=== PATIENT | female | born 1995 | race Two or more races ===

== ENCOUNTER 2024-04-07 13:23 | Emergency (ER) | payer OTHER ==
[~2024-04-07] VITALS: Ht 160 cm; Wt 81.6 kg
[2024-04-07 15:52] LABS: PH,URINE 5.5 (5.0-8.0); URINE APPEARANCE Cloudy; URINE BILIRRUBIN Negative (NEGATIVE); URINE BLOOD Negative; URINE COLOR Yellow; URINE GLUCOSE Negative (NEGATIVE); URINE KETONE 15 (NEGATIVE); URINE LEUKOCYTE Small; URINE NITRATE Negative; URINE PROTEIN Negative (NEGATIVE)
[2024-04-07 15:53] LABS: URINE BACTERIA 2047.4 uL (0.0-1933); URINE EPITHELIAL CELLS 42.9 uL (0.0-38.8); URINE RBC 85.5 uL (0.0-20.8); URINE WBC 60.1 uL (0.0-23.2)
[2024-04-07 15:53] LABS: HEMATOCRIT 36.6 % (36.0-45.00); HEMOGLOBIN 12.1 g/dL (12.0-15.00); MEAN CELL VOLUME 57.7 fL (80.00-100.00); MEAN CORPUSCULAR HGB CONC 32.9 g/dl (32.0-36.0); PLATELET COUNT 246 K/uL (150-450); RED BLOOD COUNT 6.35 M/uL (4.00-6.00)
[2024-04-07 16:21] LABS: CALCIUM 9.5 mg/dL (8.5-10.1); CREATININE SERUM 0.7 mg/dL (0.55-1.02); GFR 98.25; POTASSIUM 3.98 mEq/L (3.5-5.1)
== END 2024-04-07 18:15 | disposition home or self-care (01) ==
LOC: ER 13:25
PROVIDERS: General Practice
DX: O20.8 Other hemorrhage in early pregnancy (principal); O23.31 Infections of other parts of urinary tract in pregnancy, first trimester; N39.0 Urinary tract infection, site not specified; Z3A.08 8 weeks gestation of pregnancy

== ENCOUNTER 2024-04-15 06:18 | Day surgery (SDC) | payer OTHER ==
[~2024-04-15] VITALS: Ht 160 cm; Wt 81.6 kg
--- NOTE | 2024-04-15 06:04 | NUR ---
PACIENTE ALERTA Y ORIENTADA X3 EMBARAZADA DE 9 SEMANAS LA CUAL SE ATIENDE CON DR. BARON KAUFMAN. PACIENTE REFIERE SANGRADO DESDE VIERNES, LA MISMA REFIERE COAGULOS.
[2024-04-15] MEDS ORDERED: KETOROLAC TROMETHAMINE 30 MG VIAL IV STA (06:48)
[2024-04-15] MEDS ORDERED: RINGERS SOLUTION,LACTATED 1,000 ML IV ONE (07:00)
--- NOTE | 2024-04-15 07:25 | NUR ---
SE EDUCA A PTE SOBRE TX A RECIBIR EN EL AREA LA MISMA REFIERE ENTENDER. SE REALIZAN MUESTRAS BAJO MEDIDAS ASEPTICAS Y SE ENVIAN DE FORMA INMEDIATA A LAB. SE CANALIZA PACIENTE EN BRAZO MARC #20 DONDE SE COLOCA H.L Y SE DWAIN EN IVFLUIDS IRMA ORDEN MEDICA. SE ADMINISTRA MEDICACION A LO CUAL PTE NO PRESENTA REACCION ADVERSA. SE DWAIN LA MISMA EN ESPERA DE SONOGRAFIA CON ENVACE DE ORINA EN MANO PARA CUANDO TERMINE ESTUDIO. PACIENTE COMPLETAMENTE EDUCADA SOBRE EL PROCESO A SEGUIR EN EL AREA.
[2024-04-15 07:34] LABS: HEMATOCRIT 35.6 % (36.0-45.00); HEMOGLOBIN 11.4 g/dL (12.0-15.00); MEAN CORPUSCULAR HEMOGLOBIN 18.7 pg (27.00-32.0); MEAN CORPUSCULAR HGB CONC 32.1 g/dl (32.0-36.0); PLATELET COUNT 246 K/uL (150-450); RED BLOOD COUNT 6.13 M/uL (4.00-6.00); RED CELL DISTRIBUTION WIDTH 16.2 % (11.5-14.5)
[2024-04-15 07:36] LABS: MEAN CELL VOLUME 58.1 fL (80.00-100.00)
[2024-04-15 08:41] LABS: URINE APPEARANCE Clear; URINE BILIRRUBIN Negative (NEGATIVE); URINE BLOOD Large; URINE COLOR Yellow; URINE GLUCOSE Negative (NEGATIVE); URINE KETONE Negative (NEGATIVE); URINE LEUKOCYTE Negative; URINE NITRATE Negative; URINE PROTEIN Negative (NEGATIVE)
[2024-04-15 08:46] LABS: URINE EPITHELIAL CELLS 3.8 uL (0.0-38.8); URINE RBC 140.6 uL (0.0-20.8); URINE WBC 3.7 uL (0.0-23.2)
[2024-04-15 08:57] LABS: INR 1.03; PARTIAL THROMBOPLASTIN TIME 27.1 SECONDS (22.0-34.0); PROTHROMBIN TIME 11.2 SECONDS (9.0-11.5)
[2024-04-15 08:59] LABS: CALCIUM 8.8 mg/dL (8.5-10.1); CREATININE SERUM 0.53 mg/dL (0.55-1.02); GFR 135.45; POTASSIUM 4.16 mEq/L (3.5-5.1)
[2024-04-15 12:55] VITALS: BP 114/84
[2024-04-15] MEDS ORDERED: POVIDONE-IODINE 118 ML BOTT TOP ONE (16:00)
[2024-04-15] MEDS ORDERED: CEFAZOLIN SODIUM 1,000 MG VIAL IV ONE (16:00)
[2024-04-15] MEDS ORDERED: MORPHINE SULFATE 4 MG/ML VIAL IV ONE ×2 (19:30→20:00)
[2024-04-15 21:07] VITALS: BP 100/63; O2SAT 100
== END 2024-04-15 20:25 | disposition home or self-care (01) ==
LOC: CIR.AMB 06:18 → ER 06:18 → SEC-K 13:20 → ER 13:20 → SEC-K 20:25 → CIR.AMB 20:25
PROVIDERS: ATTEND General Practice
DX: O02.1 Missed abortion (principal); Z3A.01 Less than 8 weeks gestation of pregnancy

== ENCOUNTER 2024-07-15 15:02 | Emergency (ER) | payer OTHER ==
[~2024-07-15] VITALS: Ht 157.5 cm; Wt 81.6 kg
[2024-07-15 18:16] LABS: HEMATOCRIT 34.9 % (36.0-45.00); HEMOGLOBIN 11.1 g/dL (12.0-15.00); MEAN CORPUSCULAR HEMOGLOBIN 18.7 pg (27.00-32.0); MEAN CORPUSCULAR HGB CONC 31.6 g/dl (32.0-36.0); PLATELET COUNT 246 K/uL (150-450); RED BLOOD COUNT 5.92 M/uL (4.00-6.00); RED CELL DISTRIBUTION WIDTH 15.7 % (11.5-14.5)
[2024-07-15 18:17] LABS: MEAN CELL VOLUME 59.1 fL (80.00-100.00)
[2024-07-15 18:32] LABS: URINE APPEARANCE Cloudy; URINE BILIRRUBIN Negative (NEGATIVE); URINE BLOOD Small; URINE COLOR Yellow; URINE GLUCOSE Negative (NEGATIVE); URINE KETONE Negative (NEGATIVE); URINE LEUKOCYTE Negative; URINE NITRATE Negative; URINE PROTEIN Negative (NEGATIVE)
[2024-07-15 18:36] LABS: URINE BACTERIA 85.6 uL (0.0-1933); URINE EPITHELIAL CELLS 8.3 uL (0.0-38.8); URINE RBC 11.7 uL (0.0-20.8)
[2024-07-15 18:39] LABS: URINE CAST 0.14 uL (0.0-1.40); URINE WBC 1.5 uL (0.0-23.2)
== END 2024-07-15 19:15 | disposition home or self-care (01) ==
LOC: ER 15:04
PROVIDERS: General Practice
DX: O20.8 Other hemorrhage in early pregnancy (principal); Z3A.09 9 weeks gestation of pregnancy

== ENCOUNTER 2024-08-21 07:58 | Outpatient (CLI) | payer OTHER | END 2024-08-21 08:04 | disposition home or self-care (01) | LOC: PRENATAL 07:58 | PROVIDERS: ATTEND Obstetrics & Gynecology Maternal & Fetal Medicine | DX: O36.80X0 Pregnancy with inconclusive fetal viability, not applicable or unspecified (principal); Z36.82 Encounter for antenatal screening for nuchal translucency; Z3A.14 14 weeks gestation of pregnancy ==

== ENCOUNTER 2024-10-07 10:53 | Outpatient (CLI) | payer OTHER | END 2024-10-07 10:54 | disposition home or self-care (01) | LOC: PRENATAL 10:53 | PROVIDERS: ATTEND Obstetrics & Gynecology Maternal & Fetal Medicine | DX: O44.00 Complete placenta previa NOS or without hemorrhage, unspecified trimester (principal); Z14.8 Genetic carrier of other disease; Z3A.20 20 weeks gestation of pregnancy ==

== ENCOUNTER 2024-11-19 15:45 | Emergency (ER) | payer OTHER ==
[~2024-11-19] VITALS: Ht 160 cm; Wt 83.5 kg
[2024-11-19] MEDS ORDERED: FAMOtidine 10 MG/ML (4ML VIAL) IV ONE (16:45)
[2024-11-19] MEDS ORDERED: ONDANSETRON HCL 2 MG/ML VIAL IV ONE (16:45)
[2024-11-19] MEDS ORDERED: 0.9 % SODIUM CHLORIDE 1,000 ML IV ONE (16:45)
[2024-11-19] MEDS ORDERED: ONDANSETRON HCL 2 MG/ML VIAL ONE (17:21)
[2024-11-19] MEDS ORDERED: FAMOTIDINE/PF 20 MG/2 ML VIAL ONE (17:22)
[2024-11-19 17:43] LABS: HEMATOCRIT 31.6 % (36.0-45.00); HEMOGLOBIN 10.2 g/dL (12.0-15.00); MEAN CORPUSCULAR HEMOGLOBIN 19.6 pg (27.00-32.0); MEAN CORPUSCULAR HGB CONC 32.4 g/dl (32.0-36.0); PLATELET COUNT 174 K/uL (150-450); RED BLOOD COUNT 5.22 M/uL (4.00-6.00); RED CELL DISTRIBUTION WIDTH 16.1 % (11.5-14.5)
[2024-11-19 17:44] LABS: MEAN CELL VOLUME 60.5 fL (80.00-100.00)
[2024-11-19 17:49] LABS: COVID-19 AG NEGATIVE (NEGATIVE); INFLUENZA A AG NEGATIVE (NEGATIVE)
[2024-11-19 18:07] LABS: BILIRUBIN TOTAL 1.02 mg/dL (0.3-1.2); CALCIUM 9.1 mg/dL (8.5-10.1); CREATININE SERUM 0.55 mg/dL (0.55-1.02); GFR 128.92; GLOBULINA 3.7 G/DL (2.4-3.5); POTASSIUM 3.94 mEq/L (3.5-5.1); TOTAL PROTEIN 6.7 gm/dL (6.4-8.2)
[2024-11-19] MEDS ORDERED: ZOFRAN8 MG PO (20:09)
[2024-11-19] MEDS ORDERED: PEPCID AC20 MG PO (20:09)
== END 2024-11-19 20:57 | disposition home or self-care (01) ==
LOC: ER 15:46
PROVIDERS: General Practice
DX: O99.512 Diseases of the respiratory system complicating pregnancy, second trimester (principal); Z3A.27 27 weeks gestation of pregnancy; J00 Acute nasopharyngitis [common cold]; Z20.822 Contact with and (suspected) exposure to COVID-19

== ENCOUNTER → 2025-01-01 08:30 | Outpatient (CLI) | payer OTHER ==
[~2025-01-01 08:30] MED LIST: PEPCID AC20 MG PO; ZOFRAN8 MG PO
== END | disposition home or self-care (01) ==
LOC: PRENATAL 08:30
PROVIDERS: ATTEND Obstetrics & Gynecology Maternal & Fetal Medicine
DX: O26.849 Uterine size-date discrepancy, unspecified trimester (principal); O36.8199 Decreased fetal movements, unspecified trimester, other fetus; Z14.8 Genetic carrier of other disease; O99.019 Anemia complicating pregnancy, unspecified trimester; O36.60X0 Maternal care for excessive fetal growth, unspecified trimester, not applicable or unspecified; O40.1XX0 Polyhydramnios, first trimester, not applicable or unspecified; Z3A.35 35 weeks gestation of pregnancy

== ENCOUNTER → 2025-01-09 07:42 | Outpatient (CLI) | payer OTHER | END | disposition home or self-care (01) | LOC: PRENATAL 07:42 | PROVIDERS: ATTEND Obstetrics & Gynecology Maternal & Fetal Medicine | DX: Z76.1 Encounter for health supervision and care of foundling (principal) ==

== ENCOUNTER → 2025-01-29 14:30 | Outpatient (CLI) | payer OTHER | END | disposition home or self-care (01) | LOC: PRENATAL 14:30 | PROVIDERS: ATTEND Obstetrics & Gynecology Maternal & Fetal Medicine | DX: O26.849 Uterine size-date discrepancy, unspecified trimester (principal); O36.8199 Decreased fetal movements, unspecified trimester, other fetus; Z14.8 Genetic carrier of other disease; O99.019 Anemia complicating pregnancy, unspecified trimester; O36.60X0 Maternal care for excessive fetal growth, unspecified trimester, not applicable or unspecified; O40.1XX0 Polyhydramnios, first trimester, not applicable or unspecified; Z3A.37 37 weeks gestation of pregnancy ==

== ENCOUNTER 2025-02-07 03:05 | Inpatient (IN) | payer OTHER ==
[2025-02-07] VITALS (8 sets, daily range): BP systolic 114–129; BP diastolic 66–84
[~2025-02-07] VITALS: Ht 152.4 cm; Wt 83.9 kg
[2025-02-07] MEDS ORDERED: IRON236 MG (03:07)
[2025-02-07] MEDS ORDERED: PRENATAL CAPLE1 EAC1 (03:07)
[2025-02-07] MEDS ORDERED: RINGERS SOLUTION,LACTATED 1,000 ML IV SCH (03:15)
[2025-02-07 04:08] LABS: URINE APPEARANCE Clear; URINE BILIRRUBIN Negative (NEGATIVE); URINE BLOOD Moderate; URINE COLOR Yellow; URINE GLUCOSE Negative (NEGATIVE); URINE KETONE Negative (NEGATIVE); URINE LEUKOCYTE Negative; URINE NITRATE Negative; URINE PROTEIN Negative (NEGATIVE); URINE UROBILINOGEN 0.2 E.U./dl
[2025-02-07 04:12] LABS: URINE BACTERIA 101.9 uL (0.0-1933); URINE EPITHELIAL CELLS 12.1 uL (0.0-38.8); URINE RBC 38.2 uL (0.0-20.8); URINE WBC 2.1 uL (0.0-23.2)
[2025-02-07 04:35] LABS: BASO % 0.4 % (0.1-1.2); EOS # 0.16 (0.04-0.54); EOS % 2.0 % (0.7-7.0); LYMPH # 1.97 (1.18-3.74); LYMPH % 24.6 % (19.3-53.1); MONO # 0.64 (0.24-0.82); MONO % 8.0 % (4.7-12.5); NEUT # 5.17 (1.56-6.13); NEUT % 64.6 % (34.0-71.1); RED CELL DISTRIBUTION WIDTH 16.7 % (11.6-14.4)
[2025-02-07 04:52] LABS: INR 0.94
[2025-02-07 04:56] LABS: URINE CAST 0.00 uL (0.0-1.40)
[2025-02-07 04:59] LABS: ALT/SGPT 18.0 U/L (12-78); AST/SGOT 19.0 U/L (15-37); BILIRUBIN TOTAL 0.98 mg/dL (0.3-1.2); BUN CREA RATIO 17.0 (7.0-25.0); CREATININE SERUM 0.53 mg/dL (0.55-1.02); GFR 134.55; GLOBULINA 3.1 G/DL (2.4-3.5); GLUCOSE FASTING 99.0 mg/dL (65-100); OSMOLALITY SERUM 276.0 MOSM/KG (275-295)
[2025-02-07] MEDS ORDERED: ERYTHROMYCIN BASE OPHT 1GM EACH TUBE OP ONE (06:08)
[2025-02-07] MEDS ORDERED: OXYTOCIN 20 UNITS/1000ML RL PIGGYBAG IV ONE (06:08)
[2025-02-07] MEDS ORDERED: OXYTOCIN 10 UNITS/ML VIAL ONE (06:08)
[2025-02-07] MEDS ORDERED: CHLORHEXIDINE GLUCONATE 120 ML BOTTLE TOP ONE (06:08)
[2025-02-07] MEDS ORDERED: LIDOCAINE HCL 1% 10ML VIAL ONE (06:09)
[2025-02-07] MEDS ORDERED: MORPHINE SULFATE 4 MG/ML CARTRIDGE IV STA (07:25)
[2025-02-07] MEDS ORDERED: OXYTOCIN 500 ML IV SCH (07:30)
[2025-02-07] MEDS ORDERED: CHLORHEXIDINE GLUCONATE 120 ML BOTTLE TOP SCH (11:15)
[2025-02-07] MEDS ORDERED: OXYTOCIN 1,000 ML IV SCH (11:15)
[2025-02-07] MEDS ORDERED: OXYTOCIN 10 UNITS/ML VIAL IM STA (11:15)
[2025-02-07 15:38] LABS: BASO % 0.1 % (0.1-1.2); EOS # 0.00 (0.04-0.54); EOS % 0.0 % (0.7-7.0); LYMPH # 1.02 (1.18-3.74); LYMPH % 5.7 % (19.3-53.1); MONO # 0.83 (0.24-0.82); MONO % 4.6 % (4.7-12.5); NEUT # 15.92 (1.56-6.13); NEUT % 89.2 % (34.0-71.1); RED CELL DISTRIBUTION WIDTH 16.9 % (11.6-14.4)
[2025-02-07 16:01] LABS: BAND MAN 1.0 %; LYMPHOCYTE MAN 6.0 %; MONOCYTE MAN 5.0 %; NEUTROPHILS MAN 88.0 %
[2025-02-08] VITALS: BP 120/79
[2025-02-08 08:14] VITALS: BP 112/72
[2025-02-08 16:23] VITALS: BP 116/76
[2025-02-09 01:20] VITALS: BP 110/78
[2025-02-09 07:53] VITALS: BP 110/76
== END 2025-02-09 12:11 | disposition home or self-care (01) | DRG 807 ==
LOC: OB/GYN 03:05 → LDR 03:05 → OB/GYN 12:25
PROVIDERS: ADMIT Obstetrics & Gynecology; ATTEND Obstetrics & Gynecology
PROC: 10E0XZZ Delivery of Products of Conception, External Approach (ICD-10-PCS; principal; 2025-02-07)
PROC: 0KQM0ZZ Repair Perineum Muscle, Open Approach (ICD-10-PCS; 2025-02-07)
PROC: 4A1HXCZ Monitoring of Products of Conception, Cardiac Rate, External Approach (ICD-10-PCS; 2025-02-07)
DX: O70.1 Second degree perineal laceration during delivery (principal); Z37.0 Single live birth; Z3A.38 38 weeks gestation of pregnancy